=== PATIENT | male | born 1975 | race Hispanic/Latino ===

== ENCOUNTER 2017-05-01 21:45 | Emergency (ER) | payer OTHER, SELFPAY ==
[2017-05-01 22:21] LABS: #Basophils 0.1 thou/uL (0.0-0.2); #Eosinphils 0.4 thou/uL (0.0-0.7); #Lymphocytes 3.8 thou/uL (1.20-3.40); #Monocytes 0.8 thou/uL (0.11-0.59); #Neutrophils 7.3 thou/uL (1.40-6.50); %Basophils 0.5 % (0.0-1.0); %Eosinophils 2.9 % (0.0-10.0); %Lymphocytes 31.1 % (21.0-51.0); %Monocytes 6.4 % (0.0-10.0); Hematocrit 42.2 % (42.0-52.0); Mean Platelet Volume 7.9 fL (7.4-10.4); Red Blood Cell (RBC) Count 4.57 mill/uL (4.70-6.10); White Blood Cell (WBC) Count 12.3 thou/uL (4.8-10.8)
[2017-05-01 22:28] LABS: Bilirubin Negative (Negative); Blood, Urine Large (Negative); Glucose, Urine (Dipstick) Negative (Negative); Ketone, Urine Negative (Negative); Nitrite Negative (Negative); Protein, Urine (Dipstick) Negative (Neg-Trace); Urobilinogen 0.2 mg/dL (0.2-1.0)
[2017-05-01 22:36] LABS: ALT (SGPT) 15 U/L (8-55); AST (SGOT) 16 U/L (5-34); Alkaline Phosphatase 101 U/L (40-150); Anion Gap 13 mmol/L (10-20); BUN (Urea Nitrogen) 13 mg/dL (8.9-20.6); Bilirubin, Total 0.3 mg/dL (0.2-1.2); Calc. Creatinine Clearance 0 mL/min (70-130); Calcium 9.3 mg/dL (7.8-10.44); Carbon Dioxide 22 mmol/L (22-29); Chloride 107 mmol/L (98-107); Estimated GFR-MDRD Greater than 90; Globulin 3.3 g/dL (2.4-3.5); Lipase 11 U/L (8-78); Protein, Total 7.8 g/dL (6.0-8.3)
[2017-05-01 22:46] LABS: Bacteria/HPF None Seen HPF (None Seen); Hyaline Casts/LPF 0-3 HYALINE CAST LPF (0-3 Hyaline); RBC/HPF GREATER THAN 50-TNTC HPF (0-3); Squamous Epithelial None Seen HPF (0-3); WBC/HPF 0-3 HPF (0-3)
[2017-05-01] MEDS ORDERED: Ketorolac Tromethamine 30 MG/ML VIAL ONE (23:07)
--- NOTE | 2017-05-01 23:48 | CT ---
NONCONTRAST CT ABDOMEN AND PELVIS: Date: 05-01-17 History: Left upper quadrant abdominal pain that started two hours ago. FINDINGS: The lung bases, liver, spleen, pancreas, bilateral adrenal glands, kidneys and urinary bladder demon strate a grossly normal nonenhanced CT appearance. The appendix is visualized and normal in caliber. No free fluid, fluid collection, or lymphadenopathy is seen in the abdomen or pelvis. There is a sclerotic density seen in the right iliac bone which is likely related to a bone island. There is pseudoarticulation in the left lateral mass of L5 with S1. IMPRESSION: 1. No acute findings are seen on this nonenhanced CT scan of the abdomen and pelvis. 2. No renal or ureteral calculi are seen bilaterally. 3. No CT evidence of appendicitis. POS: [facility]
== END 2017-05-02 00:01 | disposition home or self-care (01) ==
LOC: ERS 21:45
DX: R10.12 Left upper quadrant pain (principal)
CPT/HCPCS: 74176; 80053; 81003; 81015; 83690; 85025; 96361; 96374; J1885

== ENCOUNTER 2017-10-06 22:56 | Emergency (ER) | payer SELFPAY ==
[2017-10-06] MEDS ORDERED: Ketorolac Tromethamine 30 MG/ML VIAL ONE (23:17)
[2017-10-06] MEDS ORDERED: Ondansetron HCl/PF 4 MG/2 ML Vial ONE (23:17)
[2017-10-06 23:47] LABS: #Basophils 0.1 thou/uL (0.0-0.2); #Eosinphils 0.1 thou/uL (0.0-0.7); #Lymphocytes 2.3 thou/uL (1.20-3.40); #Monocytes 0.5 thou/uL (0.11-0.59); #Neutrophils 7.8 thou/uL (1.40-6.50); %Basophils 0.7 % (0.0-1.0); %Eosinophils 1.2 % (0.0-10.0); %Lymphocytes 21.4 % (21.0-51.0); %Monocytes 4.9 % (0.0-10.0); %Neutrophils 71.9 % (42.0-75.0); Mean Corpuscular HGB CONC 34.9 g/dL (32.0-36.0); Mean Corpuscular Hemoglobin 30.8 pg (27.0-31.0); Mean Corpuscular Volume 88.4 fl (80.0-94.0); Mean Platelet Volume 7.9 fL (7.4-10.4); Platelet Count 239 thou/uL (130-400); RBC Distribution Width 11.3 % (11.5-14.5); Red Blood Cell (RBC) Count 4.85 mill/uL (4.70-6.10); White Blood Cell (WBC) Count 10.8 thou/uL (4.8-10.8)
[2017-10-07 00:07] LABS: ALT (SGPT) 16 U/L (8-55); AST (SGOT) 18 U/L (5-34); Albumin 4.7 g/dL (3.5-5.0); Alkaline Phosphatase 104 U/L (40-150); Anion Gap 17 mmol/L (10-20); BUN (Urea Nitrogen) 8 mg/dL (8.9-20.6); Bilirubin, Total 0.4 mg/dL (0.2-1.2); Calc. Creatinine Clearance 0 mL/min (70-130); Calcium 9.3 mg/dL (7.8-10.44); Carbon Dioxide 18 mmol/L (22-29); Chloride 108 mmol/L (98-107); Estimated GFR-MDRD Greater than 90; Globulin 3.5 g/dL (2.4-3.5); Glucose 113 mg/dL (70-105); Potassium 3.1 mmol/L (3.5-5.1); Protein, Total 8.2 g/dL (6.0-8.3); Sodium 140 mmol/L (136-145)
--- NOTE | 2017-10-07 00:19 | CT ---
NONCONTRAST CT ABDOMEN AND PELVIS WITHOUT IV CONTRAST: 10/06/2017 HISTORY: Sudden onset of left lower quadrant abdominal pain 30 minutes prior to arrival along with vomiting. COMPARISON: 05/01/2017. FINDINGS: There is very mild bilateral hydronephrosis with mild prominence of each ureter as well. No renal or ureteral calculi are seen bilaterally. The fullness of each renal collecting system may be attribut able to distension of the urinary bladder. The lung bases, liver, spleen, pancreas, and bilateral adrenal glands demonstrate a normal nonenhance d CT appearance. The appendix is visualized and normal in caliber. There is a sclerotic density again seen within the right iliac bone demonstrating characteristics mos t suggestive of a prominent bone island. No other interval change. IMPRESSION: 1. Very mild bilateral hydronephrosis and prominence of each ureter. The exact etiology is uncertain , but this may be related to distention of the urinary bladder. No renal or ureteral calculus is bo reciated on this exam. 2. No CT evidence of appendicitis. 3. Moderate amount of retained fecal material in the region of the rectum. POS: [facility]
[2017-10-07 00:30] LABS: Bilirubin Negative (Negative); Blood, Urine Negative (Negative); Clarity CLEAR (Clear); Glucose, Urine (Dipstick) Negative (Negative); Leukocyte Negative (Negative); Nitrite Negative (Negative); Protein, Urine (Dipstick) Negative (Neg-Trace); Specific Gravity, Urine 1.011 (1.002-1.036); Urobilinogen 0.2 mg/dL (0.2-1.0)
== END 2017-10-07 02:40 | disposition home or self-care (01) ==
LOC: ERS 22:56
DX: R10.32 Left lower quadrant pain (principal)
CPT/HCPCS: 36415; 74176; 80053; 80307; 81003; 85025; 96361; 96374; 96375; J1885; J2405

== ENCOUNTER 2018-01-23 18:52 | Emergency (ER) | payer SELFPAY ==
[2018-01-23] MEDS ORDERED: Acetaminophen/Codeine 30-300mg Tablet ONE (19:54)
--- NOTE | 2018-01-23 20:45 | RAD ---
RADIOGRAPH LEFT HAND 3 VIEWS: Date: 01/23/18 Time: 7:02 p.m. HISTORY: 42-year-old male with posttraumatic pain and swelling. COMPARISON: None. FINDINGS: Visible only on the lateral view, there is a mildly displaced fracture of the dorsal aspect of the di stal radial metaphysis, extending into the epiphysis. Distal to this, there is soft tissue swelling and edema at the dorsum of the hand, posterior to the m etacarpals. No fracture or dislocation is identified in the hand proper. IMPRESSION: 1. Traumatic, mildly displaced, closed fracture of the dorsal aspect of the distal radial metaph ysis and probably epiphysis; presumably acute, but clinical correlation is recommended: is there poin t tenderness at the dorsum of the wrist?. 2. Acute, trauma, soft tissue contusion of the dorsum of the hand. POS: [facility]
== END 2018-01-23 20:17 | disposition home or self-care (01) ==
LOC: ERS 18:52
DX: S52.502A Unspecified fracture of the lower end of left radius, initial encounter for closed fracture (principal); W18.30XA Fall on same level, unspecified, initial encounter; Y99.0 Civilian activity done for income or pay
CPT/HCPCS: 29125